=== PATIENT | female | born 1950 | race Caucasian/White ===

== ENCOUNTER 2016-06-07 11:37 | Inpatient (IN) | payer OTHER, BC ==
[~2016-06-07] VITALS: Ht 157.5 cm; Wt 68.9 kg
[~2016-06-07 11:37] MED LIST: AMBIEN10 MG PO; ATORVASTATIN CA20 MG PO; ATORVASTATIN CA80 MG PO; AZITHROMYCIN500 M1 PO; CYANOCOBALAM1000 MCG PO; FOLIC ACID0.4 MG PO; FOLIC ACID1 MG PO; GABAPENTIN300 MG PO; HYZAAR 50-121 TABLET PO; LABETALOL HCL100 MG PO; LEFLUNOMIDE20 MG PO; LEVOTHYROXINE88 MCG PO; LEVOXYL88 MCG PO; LO-DOSE ASPIRIN81 M1 PO; LOSARTAN-HCTZ1 EACH PO; METRONIDAZOLE500 MG PO; MYCOSTATIN 100,60 ML PO; NAPROSYN-EC500 MG PO; NAPROSYN250 MG PO; PREDNISONE20 MG PO; SENNA PLUS TAB1 EACH PO; SPIRIVA RESPIMAT4 GM IH; SPIRIVA1 INHALATI IH; ST. JOSEPH ASPI81 MG PO; TIROSINT100 MCG PO; VALIUM5 MG PO; VENTOLIN HFA18 GM IH; VITAMIN B12-FO1 EACH PO; VITAMIN D1000 INTUN PO; VITAMIN D31000 UNI2 PO; ZOFRAN ODT8 MG PO; ZOFRAN8 MG PO
[2016-06-07 12:37] LABS: HEMATOCRIT 32.7 % (36.0-46.0); MCH 31.6 PG (29.0-34.0); MCHC 31.2 G/DL (30.0-36.0); MCV 101.2 FL (83-99); MEAN PLAT.VOLUME 10.3 uM^3 (9.5-12.4); PLATELET COUNT 242 K/uL (156-360); RBC DIS.WIDTH-CV 14.9 % (11.8-14.6); RED BLOOD COUNT 3.23 M/uL (3.80-5.20); WHITE BLOOD COUNT 8.9 K/uL (4.1-10.2)
[2016-06-07 12:38] LABS: CARBON DIOXIDE (BICARBONATE) 34.4 MEQ/L (20-31)
[2016-06-07 12:49] LABS: CHLORIDE 97 mEq/L (99-109); SODIUM 136 mEq/L (136-147)
[2016-06-07 12:51] LABS: GLUCOSE 102 mg/dL (70-99)
[2016-06-07 12:53] LABS: ANION GAP 10 MEQ/L (2-14)
[2016-06-07 12:55] LABS: GFR ESTIMATE (CALCULATED) > 59 mL/min/
[2016-06-07 12:56] LABS: UREA NITROGEN (BUN) 10 mg/dL (9-23)
[2016-06-07 13:00] LABS: TROP-I INTERPRETATION NEGATIVE; TROPONIN-I 0.02 ng/mL (0.0-0.30)
[2016-06-07] MEDS ORDERED: DILAUDID2 MG PO (14:50)
[2016-06-07] MEDS ORDERED: ADVAIR 100/501 DISK IH (14:51)
[2016-06-07] MEDS ORDERED: TYLENOL REGULA325 MG PO (14:52)
[2016-06-07] MEDS ORDERED: LASIX20 MG PO (14:52)
[2016-06-07] MEDS ORDERED: POTASSIUM CHLO10 ME4 PO (14:52)
[2016-06-07] MEDS ORDERED: SENNA S TABLET1 EACH PO (14:53)
[2016-06-07 16:00] VITALS: BP 109/62
[2016-06-07 19:11] LABS: TROP-I INTERPRETATION NEGATIVE; TROPONIN-I 0.03 ng/mL (0.0-0.30)
[2016-06-07 20:53] LABS: ADD MIUA? NO; BILIRUBIN NEGATIVE; BLOOD NEGATIVE; COLOR YELLOW ((YELLOW)); GLUCOSE (STRIP) NEGATIVE; KETONES NEGATIVE; LEUKOCYTES NEGATIVE; NITRITE NEGATIVE; PROTEIN (STRIP) NEGATIVE; UROBILINOGEN 0.2 MG/DL (0.2-1.0)
[2016-06-08 00:32] VITALS: BP 115/80
[2016-06-08 01:02] LABS: TROP-I INTERPRETATION NEGATIVE; TROPONIN-I 0.01 ng/mL (0.0-0.30)
[2016-06-08 01:16] LABS: INFLUENZA A VIRAL ANTIGEN NEGATIVE; INFLUENZA B VIRAL ANTIGEN NEGATIVE
[2016-06-08 07:59] VITALS: BP 115/61
[2016-06-08 08:55] LABS: ANION GAP 10 MEQ/L (2-14); CHLORIDE 99 MEQ/L (99-109); GFR ESTIMATE (CALCULATED) > 59 mL/min/; GLUCOSE 138 mg/dL (70-99); SAMPLE HEMOLYSIS CHECK 0; SAMPLE ICTERIC CHECK 0; SAMPLE LIPEMIA CHECK 0; SODIUM 136 MEQ/L (136-147); UREA NITROGEN (BUN) 14 mg/dL (9-23)
[2016-06-08 09:15] LABS: HEMATOCRIT 26.8 % (36.0-46.0); MCH 31.6 PG (29.0-34.0); MCHC 31.3 G/DL (30.0-36.0); MCV 100.8 FL (83-99); PLATELET COUNT 234 K/uL (156-360); RBC DIS.WIDTH-CV 15.4 % (11.8-14.6); RED BLOOD COUNT 2.66 M/uL (3.80-5.20); WHITE BLOOD COUNT 7.1 K/uL (4.1-10.2)
[2016-06-08 16:25] VITALS: BP 121/56
[2016-06-09 00:22] VITALS: BP 148/63
[2016-06-09 07:53] VITALS: BP 152/68
[2016-06-09 08:40] LABS: HEMATOCRIT 27.1 % (36.0-46.0); MCH 31.7 PG (29.0-34.0); MCHC 31.4 G/DL (30.0-36.0); MCV 101.1 FL (83-99); MEAN PLAT.VOLUME 10.5 uM^3 (9.5-12.4); PLATELET COUNT 272 K/uL (156-360); RBC DIS.WIDTH-CV 15.5 % (11.8-14.6); RED BLOOD COUNT 2.68 M/uL (3.80-5.20)
[2016-06-09 08:52] LABS: WHITE BLOOD COUNT 10.2 K/uL (4.1-10.2)
[2016-06-09 08:53] LABS: ANION GAP 8 MEQ/L (2-14); CHLORIDE 103 MEQ/L (99-109); GFR ESTIMATE (CALCULATED) > 59 mL/min/; GLUCOSE 128 mg/dL (70-99); POTASSIUM 4.1 MEQ/L (3.7-5.4); SAMPLE HEMOLYSIS CHECK 0; SAMPLE ICTERIC CHECK 0; SAMPLE LIPEMIA CHECK 0; SODIUM 141 MEQ/L (136-147); UREA NITROGEN (BUN) 17 mg/dL (9-23)
[2016-06-09 16:31] VITALS: BP 150/63
[2016-06-10] VITALS: BP 170/77
[2016-06-10 04:00] VITALS: BP 116/62
[2016-06-10 08:04] VITALS: BP 146/80
[2016-06-10 16:11] VITALS: BP 174/74
[2016-06-11] VITALS: BP 182/84
[2016-06-11 08:14] VITALS: BP 164/82
[2016-06-11 15:16] VITALS: BP 167/76
[2016-06-11 23:00] VITALS: BP 188/96
[2016-06-11 23:35] VITALS: BP 152/78
[2016-06-12 07:42] VITALS: BP 180/79
[2016-06-12 09:39] LABS: ANION GAP 11 MEQ/L (2-14); CHLORIDE 105 MEQ/L (99-109); POTASSIUM 3.7 MEQ/L (3.7-5.4); SAMPLE HEMOLYSIS CHECK 0; SAMPLE ICTERIC CHECK 0; SAMPLE LIPEMIA CHECK 0; SODIUM 142 MEQ/L (136-147)
[2016-06-12 09:47] LABS: GFR ESTIMATE (CALCULATED) > 59 mL/min/; GLUCOSE 86 mg/dL (70-99); UREA NITROGEN (BUN) 14 mg/dL (9-23)
[2016-06-12 09:48] LABS: HEMATOCRIT 28.8 % (36.0-46.0); MCH 31.5 PG (29.0-34.0); MCHC 31.6 G/DL (30.0-36.0); MCV 99.7 FL (83-99); MEAN PLAT.VOLUME 11.1 uM^3 (9.5-12.4); PLATELET COUNT 248 K/uL (156-360); RBC DIS.WIDTH-CV 14.9 % (11.8-14.6); RBC DIS.WIDTH-SD 54.3 % (39-53); RED BLOOD COUNT 2.89 M/uL (3.80-5.20); WHITE BLOOD COUNT 7.1 K/uL (4.1-10.2)
[2016-06-12 10:05] VITALS: BP 150/80
[2016-06-12 15:12] VITALS: BP 176/82
[2016-06-12 16:30] VITALS: BP 160/79
[2016-06-13 00:05] VITALS: BP 166/72
[2016-06-13 08:08] VITALS: BP 180/92
[2016-06-13] MEDS ORDERED: CEFTIN500 MG PO (15:12)
[2016-06-13] MEDS ORDERED: PREDNISONE10 MG PO (15:12)
[2016-06-13] MEDS ORDERED: DOXYCYCLINE HY100 MG PO (15:12)
[2016-06-13 15:56] VITALS: BP 141/69
== END 2016-06-13 16:24 | disposition home health service (06) | DRG 871 ==
LOC: EME → EDBD 11:37 → EME 11:37 → 5SOUTH 14:28 → EDOF 14:28 → 5SOUTH 16:43
PROVIDERS: Emergency Medicine; Hospitalist; Internal Medicine; Nurse Practitioner Adult Health
DX: A41.9 Sepsis, unspecified organism (principal); J96.21 Acute and chronic respiratory failure with hypoxia; J44.1 Chronic obstructive pulmonary disease with (acute) exacerbation; C34.11 Malignant neoplasm of upper lobe, right bronchus or lung; J20.9 Acute bronchitis, unspecified; Z99.81 Dependence on supplemental oxygen; I10 Essential (primary) hypertension; E03.9 Hypothyroidism, unspecified; E78.5 Hyperlipidemia, unspecified; M19.90 Unspecified osteoarthritis, unspecified site; D64.9 Anemia, unspecified; M06.9 Rheumatoid arthritis, unspecified; Z88.5 Allergy status to narcotic agent; Z90.2 Acquired absence of lung [part of]; Z87.891 Personal history of nicotine dependence; Z80.1 Family history of malignant neoplasm of trachea, bronchus and lung; Z83.79 Family history of other diseases of the digestive system
CPT/HCPCS: 71020; 71275; 74177; 77334; 77470; 80048; 81003; 82803; 83605; 83880; 84484; 85027; 87040; 87086; 87502; 93005; 94640; 94640 76; 94760; 94799; 99281; 99285; J0360; J1170; J1650; J1956; J2405; J2543; J2930; J7030; J7050; J7512